=== PATIENT | male | born 1975 | race Caucasian/White ===

== ENCOUNTER 2017-11-03 08:12 | Outpatient (CLI) | payer OTHER ==
[2017-11-03 09:13] LABS: eGFR (African) > 60; eGFR (Non-African) > 60
== END 2017-11-03 08:20 ==
LOC: LAB 08:12
PROVIDERS: ATTEND Family Medicine
DX: E78.5 Hyperlipidemia, unspecified (principal)
CPT/HCPCS: 36415; 80053; 80061